=== PATIENT | female | born 1965 | race African-American/Black ===

== ENCOUNTER → 2016-06-09 | Day surgery (SDC) | payer OTHER ==
[~2016-06-09] VITALS: Ht 167.6 cm; Wt 59.0 kg
[~2016-06-09] MED LIST: ALPR2TAB3 PO; BENZ1CAP34 PO; CYCLOPENTOLATE HCL 1% OPHT SOLN 2 ML BTL ONE; DULO1CAP PO; EPINEPHrine-Lidocaine/BSS (PF/SF) 4-120 mg/16 mL OPTH SYR ONE; FERR324T4 PO; FERR325T PO; FLURBIPROFEN 0.03% OPHT SOLN 2.5 ML BTL ONE; FURO40TA PO; GABA100C4 PO; HYALURONIDASE/LIDOCAINE/EPINEPHRINE/BUPIVACAINE 6 ML SYR ONE; INSU1INJ14 SQ; LIDOCAINE HCL 1% PF 30 ML VIAL ONE; LISI-515 PO; NOVOLOGP2 SQ; OXYC-395 PO; PHENYLEPHRINE HCL 10% OPTH SOLN 5 ML BTL ONE; POTA10CA PO; PRAV40TA2 PO; PROM12.54 PO; PROM25TA5 PO; PROPARACAINE HCL 0.5% OPHT SOLN 15 ML BTL ONE; PROPOFOL 200 MG/20 ML AMP ONE; SERT-132 PO; SODIUM CHLORID 0.9% 500 ML INJ 500 ML ONE; TROPICAMIDE 1% OPHT SOLN 15 ML BTL ONE
[2016-06-09 08:37] VITALS: BP 149/75; PULSE 99; RESP 16; TEMP 98; O2SAT 100
[2016-06-09 08:45] VITALS: PULSE 99
[2016-06-09 09:20] VITALS: PULSE 90
[2016-06-09] MEDS: TOBRAMYCIN/DEXAMETHASONE OPTH OINT 3.5 GM TUBE ONE ×2 (09:39→09:51)
[2016-06-09 10:25] VITALS: BP 126/77; PULSE 100; RESP 16; TEMP 97.8; O2SAT 99
--- NOTE | 2016-06-10 17:06 | MP ---
cc: CHUCHO LANE M.D. Corrected Copy: 06/16/16 [facility] NUMBER: [id number] DATE OF SURGERY: 06/09/2016 PREOPERATIVE DIAGNOSIS: Visually significant cataract left eye. POSTOPERATIVE DIAGNOSIS: Visually significant cataract left eye. OPERATION: Phacoemulsification with posterior chamber lens implantation, left eye. SURGEON: Chucho Lane MD ANESTHESIA: Retrobulbar with MAC. COMPLICATIONS: None. PROCEDURE: After informed consent was obtained, the patient was brought into the operative suite and placed on appropriate monitors by the Anesthesia Service. The patient had received a prior retrobulbar injection of local anesthetic by the Anesthesia Service in the holding area. The patient's operative eye was then prepped and draped in the usual sterile fashion. A wire lid speculum was placed. A paracentesis incision was made in the peripheral cornea with a 1 mm veronica keratome. The anterior chamber was filled with viscoelastic. The anterior chamber was then entered through a stepped, clear corneal incision using a sharp 3 mm veronica keratome. A circular tear capsulorrhexis was then made with a bent needle cystitome. Following hydrodissection of the lens nucleus with balanced saline, phaco-emulsification of the nucleus was performed using a modified chopping technique. The remaining cortex was removed with irrigation/aspiration. The prior two procedures were both performed using the handpieces of the [employer] phaco unit. The capsular bag was then filled with viscoelastic. The intraocular lens was then injected into the capsular bag and positioned. The type of intraocular lens and its power can be found elsewhere in this chart. The remaining viscoelastic was then removed from the anterior chamber with the IA handpiece. The anterior chamber was reformed with balanced saline. The wound was then closed securely with stromal hydration. It was found to be watertight to an intraocular pressure of at least 30 mmHg by palpation. A small amount of balanced salt solution was then removed through the paracentesis site and the intraocular pressure at the end of the case was approximately 20 by palpation. All drapes were then removed. TobraDex ointment was then placed in the eye, which was closed beneath a semi-pressure patch dressing. The patient tolerated this procedure well and left the operating room awake and alert. The patient is to follow-up in my office in the morning. ADDENDUM: After the clear corneal incisions were sealed watertight, an 8 mm limbal relaxing incision was made with a 600 micron veronica blade, centered around the inferior 90 degree meridian. MD Talya Marmolejo /10:06 AM /2:55 PM
== END | disposition home or self-care (01) ==
LOC: PHSDC 07:00
PROVIDERS: ATTEND Optometrist Occupational Vision
DX: H25.812 Combined forms of age-related cataract, left eye (principal); H43.12 Vitreous hemorrhage, left eye; H35.372 Puckering of macula, left eye; E10.3393 Type 1 diabetes mellitus with moderate nonproliferative diabetic retinopathy without macular edema, bilateral; Z79.4 Long term (current) use of insulin
CPT/HCPCS: 00142; 66984; 82948; J7040; V2632

== ENCOUNTER → 2016-07-17 | Day surgery (SDC) | payer OTHER ==
[~2016-07-17] VITALS: Ht 167.6 cm; Wt 59.0 kg
[~2016-07-17] MED LIST changes: -BENZ1CAP34 PO; -DULO1CAP PO; -FERR325T PO; -LIDOCAINE HCL 1% PF 30 ML VIAL ONE; -PROM25TA5 PO; +TOBRAMYCIN/DEXAMETHASONE OPTH OINT 3.5 GM TUBE ONE
[2016-07-17 09:26] VITALS: BP 119/83; PULSE 89; RESP 18; TEMP 97.6; O2SAT 100
[2016-07-17 09:35] VITALS: PULSE 89
[2016-07-17 10:07] VITALS: PULSE 80
[2016-07-17 11:20] VITALS: BP 145/83; PULSE 93; RESP 16; TEMP 97.3; O2SAT 100
--- NOTE | 2016-07-18 20:25 | MP ---
cc: CHUCHO LANE M.D. FORMERLY [facility], [facility] #[id number] DATE OF SURGERY 07/17/16 POSTOPERATIVE DIAGNOSIS: Visually significant cataract right eye. OPERATION: Phacoemulsification with posterior chamber lens implantation, right eye. SURGEON: Chucho Lane MD ANESTHESIA: Retrobulbar with MAC. COMPLICATIONS: None. PROCEDURE: After informed consent was obtained, the patient was brought into the operative suite and placed on appropriate monitors by the Anesthesia Service. The patient had received a prior retrobulbar injection of local anesthetic by the Anesthesia Service in the holding area. The patient's operative eye was then prepped and draped in the usual sterile fashion. A wire lid speculum was placed. A paracentesis incision was made in the peripheral cornea with a 1 mm veronica keratome. The anterior chamber was filled with viscoelastic. The anterior chamber was then entered through a stepped, clear corneal incision using a sharp 3 mm veronica keratome. A circular tear capsulorrhexis was then made with a bent needle cystitome. Following hydrodissection of the lens nucleus with balanced saline, phaco-emulsification of the nucleus was performed using a modified chopping technique. The remaining cortex was removed with irrigation/aspiration. The prior two procedures were both performed using the handpieces of the [employer] phaco unit. The capsular bag was then filled with viscoelastic. The intraocular lens was then injected into the capsular bag and positioned. The type of intraocular lens and its power can be found elsewhere in this chart. The remaining viscoelastic was then removed from the anterior chamber with the IA handpiece. The anterior chamber was reformed with balanced saline. The wound was then closed securely with stromal hydration. It was found to be watertight to an intraocular pressure of at least 30 mmHg by palpation. A small amount of balanced salt solution was then removed through the paracentesis site and the intraocular pressure at the end of the case was approximately 20 by palpation. All drapes were then removed. TobraDex ointment was then placed in the eye, which was closed beneath a semi-pressure patch dressing. The patient tolerated this procedure well and left the operating room awake and alert. The patient is to follow-up in my office in the morning. ADDENDUM After the clear corneal incisions were sealed watertight, a 6 mm limbal relaxing incision was made with a 600 micron veronica blade centered around the 90 degree [place]. MD JESSIE Marmolejo /11:11 AM /8:18 PM
== END | disposition home or self-care (01) ==
LOC: PHSDC 08:12
PROVIDERS: ATTEND Optometrist Occupational Vision
DX: H25.811 Combined forms of age-related cataract, right eye (principal); E10.22 Type 1 diabetes mellitus with diabetic chronic kidney disease; I12.9 Hypertensive chronic kidney disease with stage 1 through stage 4 chronic kidney disease, or unspecified chronic kidney disease; N18.9 Chronic kidney disease, unspecified; E10.21 Type 1 diabetes mellitus with diabetic nephropathy; Z88.0 Allergy status to penicillin; Z79.4 Long term (current) use of insulin
CPT/HCPCS: 66984; 82948; J7040; V2632